=== PATIENT | male | born 1940 | race Caucasian/White ===

== ENCOUNTER 2016-08-09 09:45 | Outpatient (RCR) | payer MEDICARE, OTHER | END 2016-09-09 | disposition home or self-care (01) | LOC: ONC 09:45 | PROVIDERS: ATTEND Radiology Radiation Oncology | DX: Z51.0 Encounter for antineoplastic radiation therapy (principal); C34.12 Malignant neoplasm of upper lobe, left bronchus or lung | CPT/HCPCS: 77290; 77295; 77300; 77307; 77332; 77334; 77336; 77417; 77470; 99214 ==